=== PATIENT | male | born 1955 ===

== ENCOUNTER 2018-12-14 09:52 | Emergency (ER) | payer OTHER ==
[2018-12-14 10:13] VITALS: BP 131/86; PULSE 85; RESP 16; TEMP 98.1; O2SAT 100
[2018-12-14] MEDS ORDERED: Naproxen 550 mg Tab PO STA (10:25)
[2018-12-14] MEDS ORDERED: Naproxen 550 mg Tab PO ONE (10:32)
--- NOTE | 2018-12-14 11:12 | C.PDOC ---
History Of Present Illness 63 y/o male presents to the ER complaining of left anterior shoulder pain which has been present since last night. Patient states that the pain began after he was lifting heavy objects. Patient reports that the pain is worse with abduction of the left arm. Denies having direct trauma, falls, injuries, sensory changes in arms, CP, and SOB. Time Seen by Provider: 12/14/18 10:16 Chief Complaint (Nursing): Upper Extremity Problem/Injury History Per: Patient History/Exam Limitations: no limitations Onset/Duration Of Symptoms: Days Current Symptoms Are (Timing): Still Present Severity: Moderate Past Medical History Reviewed: Historical Data, Nursing Documentation, Vital Signs Vital Signs: Last Vital Signs Temp 98.1 F 12/14/18 10:07 Pulse 85 12/14/18 10:07 Resp 16 12/14/18 10:07 BP 131/86 12/14/18 10:07 Pulse Ox 100 12/14/18 10:07 - Medical History PMH: HTN Surgical History: No Surg Hx Family History: States: No Known Family Hx - Social History Hx Alcohol Use: No Hx Substance Use: No - Immunization History Hx Tetanus Toxoid Vaccination: No Hx Influenza Vaccination: No Hx Pneumococcal Vaccination: No Review Of Systems Except As Marked, All Systems Reviewed And Found Negative. Cardiovascular: Negative for: Chest Pain Respiratory: Negative for: Shortness of Breath Musculoskeletal: Positive for: Shoulder Pain (left shoulder pain) Neurological: Negative for: Weakness, Numbness Physical Exam - Physical Exam Appears: Other (mild pain) Skin: Normal Color, Warm, Dry Head: Atraumatic, Normacephalic Eye(s): bilateral: Normal Inspection Nose: Normal Oral Mucosa: Moist Neck: Supple Chest: Symmetrical Cardiovascular: Rhythm Regular Respiratory: Normal Breath Sounds, No Rales, No Rhonchi, No Wheezing Extremity: No Normal ROM (limited ROM in left shoulder secondary to pain), Tenderness (tenderness to humeral head of left shoulder), No Deformity, No Swelling Pulses: Left Radial: Normal Neurological/Psych: Oriented x3, Normal Speech, Normal Motor, Normal Sensation (left arm and hand) ED Course And Treatment O2 Sat by Pulse Oximetry: 100 (RA) Pulse Ox Interpretation: Normal - Other Rad X-Ray-Left Shoulder X-Ray: Viewed By Me, Read By Radiologist Interpretation: PROCEDURE: Radiographs of the Left Shoulder. HISTORY: LEFT SHOULDER PAIN. COMPARISON: None available. FINDINGS: BONES: No acute displaced fracture. The distal clavicle and underlying ribs appear intact. JOINTS: No acute dislocation. Dense large calcification adjacent to the humeral head consistent with calcific tendinitis. SOFT TISSUES: Soft tissues appear unremarkable. No evidence of radiopaque foreign body. IMPRESSION: Dense large calcification adjacent to the humeral head consistent with calcific tendinitis. No acute displaced fracture or dislocation evident. If symptoms persist or if there is continued clinical concern, x-ray follow-up in 7-10 days should be considered. Progress Note: X-Ray- Left Shoulder ordered and reviewed. Patient treated with Naproxen PO and Flexeril PO. Sling has been applied by sound recordist. Patient has been discharged and instructed to follow up with orthopedist in 1 week. Disposition Counseled Patient/Family Regarding: Studies Performed, Diagnosis, Need For Followup, Rx Given - Disposition Referrals: Tyler Smith III, MD [Staff Provider] - Disposition: HOME/ ROUTINE Disposition Time: 11:10 Condition: STABLE Additional Instructions: FOLLOW UP WITH ORTHOPEDICS WITHIN 1 WEEK USE PAIN MEDICATION NEEDED RETURN TO ER IF SYMPTOMS BECOME WORSE SEGUIR CON ORTOPEDIA EN SILVIA SEMANA UTILICE MEDICAMENTOS PARA EL DOLOR SEGN LO NECESARIO REGRESAR A ER SI LOS SNTOMAS SE HACEN PEOR Prescriptions: Naproxen 375 mg PO BID PRN #20 tablet PRN Reason: pain Instructions: Calcific Tendonitis of the Shoulder (DC) Forms: [facility] (Hebrew), Work Excuse Print Language: [place]THER[place] IRISH - Clinical Impression Clinical Impression: Calcific tendinitis of left shoulder - Scribe Statement The provider has reviewed the documentation as recorded by the Candy Ferrer Provider Attestation: All medical record entries made by the Candy were at my direction and personally dictated by me. I have reviewed the chart and agree that the record accurately reflects my personal performance of the history, physical exam, medical decision making, and the department course for this patient. I have also personally directed, reviewed, and agree with the discharge instructions and disposition.
--- NOTE | 2018-12-14 11:42 | RAD ---
PROCEDURE: Radiographs of the Left Shoulder HISTORY: LEFT SHOULDER PAIN COMPARISON: None available. FINDINGS: BONES: No acute displaced fracture. The distal clavicle and underlying ribs appear intact. JOINTS: No acute dislocation. Dense large calcification adjacent to the humeral head consistent with calcific tendinitis. SOFT TISSUES: Soft tissues appear unremarkable. No evidence of radiopaque foreign body. IMPRESSION: Dense large calcification adjacent to the humeral head consistent with calcific tendinitis. No acute displaced fracture or dislocation evident. If symptoms persist or if there is continued clinical concern, x-ray follow-up in 7-10 days should be considered.
== END 2018-12-14 11:31 | disposition home or self-care (01) ==
LOC: C.ER 09:52
DX: M75.32 Calcific tendinitis of left shoulder (principal)